=== PATIENT | male | born 1975 | race Caucasian/White ===

== ENCOUNTER 2016-09-16 17:22 | Emergency (ER) | payer OTHER | END 2016-09-16 18:40 | disposition home or self-care (01) | LOC: ER1 17:22 | DX: R11.10 Vomiting, unspecified (principal); Z90.49 Acquired absence of other specified parts of digestive tract | CPT/HCPCS: 99283 ==

== ENCOUNTER 2016-09-25 22:03 | Emergency (ER) | payer OTHER ==
[2016-09-26 02:13] LABS: HEMOGLOBIN 14.9 gm/dl (14.0-17.5); RED BLOOD COUNT 4.97 M/UL (4.20-5.50); WHITE BLOOD COUNT 8.2 K/UL (4.5-11.0)
[2016-09-26 02:31] LABS: BUN/CREATININE RATIO 13 (0-10)
== END 2016-09-26 05:40 | disposition home or self-care (01) ==
LOC: ER1 22:03
PROVIDERS: Family Medicine
DX: R11.10 Vomiting, unspecified (principal); R10.84 Generalized abdominal pain; Z90.49 Acquired absence of other specified parts of digestive tract; F17.200 Nicotine dependence, unspecified, uncomplicated
CPT/HCPCS: 36415; 80053; 82150; 83690; 85025; 87081; 87880; 96361; 96374; 96375; 99284; J2060; J2270; J2405; J7120

== ENCOUNTER 2016-10-08 09:17 | Emergency (ER) | payer OTHER | END 2016-10-08 11:43 | disposition home or self-care (01) | LOC: ER1 09:17 | DX: S50.02XA Contusion of left elbow, initial encounter (principal); Z87.891 Personal history of nicotine dependence; W22.8XXA Striking against or struck by other objects, initial encounter; Y93.G3 Activity, cooking and baking; Y92.9 Unspecified place or not applicable; Y99.0 Civilian activity done for income or pay | CPT/HCPCS: 73060; 73080; 73090; 99283 ==

== ENCOUNTER 2016-10-17 15:31 | Emergency (ER) | payer OTHER | END 2016-10-17 17:55 | disposition home or self-care (01) | LOC: ER1 15:31 | DX: S43.402A Unspecified sprain of left shoulder joint, initial encounter (principal); S53.402A Unspecified sprain of left elbow, initial encounter; S93.402A Sprain of unspecified ligament of left ankle, initial encounter; S93.602A Unspecified sprain of left foot, initial encounter; F17.210 Nicotine dependence, cigarettes, uncomplicated; W08.XXXA Fall from other furniture, initial encounter | CPT/HCPCS: 36415; 73030; 73080; 73564; 73610; 73630; 96374; 99283 ==